=== PATIENT | male | born 1995 | race Caucasian/White ===

== ENCOUNTER 2020-10-06 05:00 | Emergency (ER) | payer SELFPAY ==
--- NOTE | 2020-10-06 05:43 | EDM.PDOC ---
ED HPI GENERAL MEDICAL PROBLEM - General Chief Complaint: Head Injury Stated Complaint: HIT HEAD Time Seen by Provider: 10/06/20 05:30 Source of Information: Reports: Patient History Limitations: Reports: No Limitations - History of Present Illness INITIAL COMMENTS - FREE TEXT/NARRATIVE: 25-year-old male has been drinking tonight, fell onto his face sustaining a lip laceration and was bleeding from his right cheek and zoroastrianism area which concerned his girlfriend because the bleeding was persistent. No loss of consciousness. No dental injury. Onset: Sudden Duration: Hour(s): (2 hours ago) Location: Reports: Head, Face Associated Symptoms: Reports: No Other Symptoms denies pain Pain Score (Numeric/FACES): 0 - Related Data Allergies Allergy/AdvReac Type Severity Reaction Status Date / Time No Known Allergies Allergy Verified 10/06/20 05:23 Home Meds: Home Meds NK [No Known Home Meds] 10/06/20 [History] Past Medical History - Infectious Disease History Infectious Disease History: Reports: Chicken Pox - Past Surgical History Musculoskeletal Surgical History: Reports: Other (See Below) Other Musculoskeletal Surgeries/Procedures:: surgery to right leg with hardware age 11 Social & Family History - Tobacco Use Tobacco Use Status *Q: Current Every Day Tobacco User Years of Tobacco use: 8 Packs/Tins Daily: 2 - Caffeine Use Caffeine Use: Reports: Energy Drinks - Alcohol Use Date of Last Drink: 10/06/20 - Recreational Drug Use Recreational Drug Use: No ED ROS GENERAL - Review of Systems Review Of Systems: See Below Constitutional: Denies: Fever, Chills HEENT: Denies: Nosebleed, Vision Change Respiratory: Denies: Shortness of Breath Cardiovascular: Denies: Chest Pain GI/Abdominal: Denies: Nausea, Vomiting Skin: Reports: Bruising (Some slight bruising is developed on the right cheek as well as a small abrasion. There is also a laceration to the upper lip) Neurological: Reports: Dizziness (Mild dizziness initially). Denies: Headache, Syncope ED EXAM, HEAD INJURY - Physical Exam Exam: See Below Exam Limited By: No Limitations General Appearance: Alert, No Apparent Distress Head: Other (Patient has a 1 cm mucosal laceration to the left upper lip, edges are approximated well and it does not cross the vermilion border. There is some slight swelling and bruising on the right zygomatic area of the cheek with some dried blood. This was cleaned and bleeding restarted from a pinpoint small wound which was cauterized. No underlying bony tenderness to the zoroastrianism or zygomatic area) Eyes: Bilateral Eye: EOMI (No pain with movement of the eyes), PERRL Ears: Normal TMs Throat/Mouth: Other (1 cm upper lip laceration) Neck: Non-Tender Respiratory: No Respiratory Distress Course - Vital Signs Last Recorded V/S: Last Vital Signs Temp 98.1 F 10/06/20 05:22 Pulse 74 10/06/20 05:22 Resp 16 10/06/20 05:22 BP 125/79 10/06/20 05:22 Pulse Ox 97 10/06/20 05:22 - Re-Assessments/Exams Free Text/Narrative Re-Assessment/Exam: 10/06/20 05:49 The tiny wound on the right cheek was cauterized with silver nitrate, the lip laceration does not need repair. I encouraged him to ice down sore areas for the next couple of days and increase activity as tolerated, he can return if he develops concerning symptoms. Departure - Departure Time of Disposition: 05:46 Disposition: Home, Self-Care 01 Clinical Impression: Laceration of lip Qualifiers: Encounter type: initial encounter Qualified Code(s): S01.511A - Laceration without foreign body of lip, initial encounter Facial contusion Qualifiers: Encounter type: initial encounter Qualified Code(s): S00.83XA - Contusion of other part of head, initial encounter - Discharge Information Instructions: Head Injury, Adult, [id number] Referrals: PCP,None [Primary Care Provider] - Forms: ED Department Discharge Care Plan Goals: Ice to sore swollen areas will be helpful for the next couple of days, return if concerns. Sepsis Event Note (ED) - Evaluation Sepsis Screening Result: No Definite Risk - Focused Exam Vital Signs: Vital Signs Temp Pulse Resp BP Pulse Ox 10/06/20 05:22 98.1 F 74 16 125/79 97
== END 2020-10-06 05:49 | disposition home or self-care (01) ==
LOC: JP.ED 05:00
DX: S01.511A Laceration without foreign body of lip, initial encounter (principal); S00.83XA Contusion of other part of head, initial encounter; Z72.0 Tobacco use; W00.1XXA Fall from stairs and steps due to ice and snow, initial encounter
CPT/HCPCS: 12011; 99283-25